=== PATIENT | female | born 1945 | race Caucasian/White ===

== ENCOUNTER 2017-08-02 07:44 | Outpatient (CLI) | payer OTHER ==
[~2017-08-02 07:44] MED LIST: ARICEPT5 MG PO; COZAAR25 MG; COZAAR25 MG PO; FLONASE16 GM NS; HYDROCHLOROTHIA25 MG; HYDROCHLOROTHIA25 MG PO; HYZAAR 100/25 T1 TAB PO; IOPHEN DM-100 MG/5 M PO; LOPRESSOR25 MG PO; METOPROLOL SUCC25 MG; METOPROLOL SUCC25 MG PO; METROPOLOL PO; MULTI VITAMIN1 EACH PO; OSEL75CA PO; PROCARDIA 30 MG PO; PROCARDIA90 MG/BLIS; PROCARDIA90 MG/BLIS PO; SYNTHROID50 MCG PO; ZANTAC300 MG PO; ZYRTEC10 MG PO
== END 2017-08-02 07:53 | disposition home or self-care (01) ==
LOC: MAMO-SONO 07:44
DX: Z12.31 Encounter for screening mammogram for malignant neoplasm of breast (principal); E03.8 Other specified hypothyroidism

== ENCOUNTER 2017-12-12 08:05 | Outpatient (CLI) | payer OTHER | END 2017-12-12 08:08 | disposition home or self-care (01) | LOC: RAD 08:05 | DX: Z00.01 Encounter for general adult medical examination with abnormal findings (principal); R10.84 Generalized abdominal pain; I10 Essential (primary) hypertension; J44.9 Chronic obstructive pulmonary disease, unspecified; M41.85 Other forms of scoliosis, thoracolumbar region; E04.1 Nontoxic single thyroid nodule; E03.8 Other specified hypothyroidism; E78.2 Mixed hyperlipidemia; Z12.11 Encounter for screening for malignant neoplasm of colon ==

== ENCOUNTER 2017-12-12 09:49 | Outpatient (CLI) | payer OTHER | END 2017-12-12 09:58 | disposition home or self-care (01) | LOC: LAB 09:49 | DX: Z00.01 Encounter for general adult medical examination with abnormal findings (principal); J44.9 Chronic obstructive pulmonary disease, unspecified; I10 Essential (primary) hypertension; M41.85 Other forms of scoliosis, thoracolumbar region; R10.9 Unspecified abdominal pain; R04.1 Hemorrhage from throat; E03.9 Hypothyroidism, unspecified; E78.2 Mixed hyperlipidemia; Z12.11 Encounter for screening for malignant neoplasm of colon ==

== ENCOUNTER 2017-12-22 08:03 | Outpatient (CLI) | payer OTHER ==
[~2017-12-22] VITALS: Ht 152.4 cm; Wt 88.5 kg
== END 2017-12-22 08:20 | disposition home or self-care (01) ==
LOC: OFIC 805 08:03
DX: J31.2 Chronic pharyngitis (principal); J34.89 Other specified disorders of nose and nasal sinuses; J32.8 Other chronic sinusitis

== ENCOUNTER 2018-05-17 10:03 | Outpatient (CLI) | payer OTHER | END 2018-05-17 16:05 | disposition home or self-care (01) | LOC: RAD 10:03 | DX: M54.2 Cervicalgia (principal); M54.89 Other dorsalgia ==

== ENCOUNTER 2018-05-23 07:29 | Outpatient (CLI) | payer OTHER | END 2018-05-23 07:35 | disposition home or self-care (01) | LOC: LAB 07:29 | DX: I10 Essential (primary) hypertension (principal); E03.8 Other specified hypothyroidism; E78.2 Mixed hyperlipidemia; Z12.11 Encounter for screening for malignant neoplasm of colon; Z13.1 Encounter for screening for diabetes mellitus ==

== ENCOUNTER 2018-11-27 09:14 | Outpatient (CLI) | payer OTHER | END 2018-11-27 11:27 | disposition home or self-care (01) | LOC: LAB 09:14 | DX: J11.1 Influenza due to unidentified influenza virus with other respiratory manifestations (principal); J11.89 Influenza due to unidentified influenza virus with other manifestations ==

== ENCOUNTER → 2019-04-13 07:23 | Outpatient (CLI) | payer OTHER | END | disposition home or self-care (01) | LOC: LAB 07:23 | DX: E78.49 Other hyperlipidemia (principal); Z00.00 Encounter for general adult medical examination without abnormal findings; E55.9 Vitamin D deficiency, unspecified; E03.8 Other specified hypothyroidism; R42 Dizziness and giddiness; J06.9 Acute upper respiratory infection, unspecified ==

== ENCOUNTER → 2019-04-26 08:53 | Outpatient (CLI) | payer OTHER | END | disposition home or self-care (01) | LOC: LAB 08:53 | DX: R05 Cough (principal); J11.1 Influenza due to unidentified influenza virus with other respiratory manifestations ==

== ENCOUNTER 2019-07-31 09:28 | Outpatient (CLI) | payer OTHER | END 2019-07-31 15:00 | disposition home or self-care (01) | LOC: LAB 09:28 | DX: J11.1 Influenza due to unidentified influenza virus with other respiratory manifestations (principal) ==

== ENCOUNTER 2019-09-07 10:12 | Outpatient (CLI) | payer OTHER | END 2019-09-07 10:52 | disposition home or self-care (01) | LOC: RAD 10:12 | DX: R05 Cough (principal) ==

== ENCOUNTER 2020-02-26 08:24 | Outpatient (CLI) | payer OTHER | END 2020-02-26 15:00 | disposition home or self-care (01) | LOC: LAB 08:24 | PROVIDERS: ATTEND General Practice | DX: E03.8 Other specified hypothyroidism (principal); I10 Essential (primary) hypertension; Z00.8 Encounter for other general examination; J01.10 Acute frontal sinusitis, unspecified ==

== ENCOUNTER 2020-02-26 09:44 | Outpatient (CLI) | payer OTHER | END 2020-02-26 09:51 | disposition home or self-care (01) | LOC: MAMO-SONO 09:44 | PROVIDERS: ATTEND General Practice | DX: Z12.31 Encounter for screening mammogram for malignant neoplasm of breast (principal) ==

== ENCOUNTER 2020-04-02 10:00 | Outpatient (CLI) | payer OTHER | END 2020-04-02 15:00 | disposition home or self-care (01) | LOC: PPH VACUNA 10:00 | DX: Z23 Encounter for immunization (principal) ==

== ENCOUNTER → 2020-11-19 09:03 | Outpatient (CLI) | payer OTHER | END | disposition home or self-care (01) | LOC: LAB 09:03 | PROVIDERS: ATTEND Internal Medicine Cardiovascular Disease | DX: E11.9 Type 2 diabetes mellitus without complications (principal); I10 Essential (primary) hypertension; E03.8 Other specified hypothyroidism; E78.2 Mixed hyperlipidemia; Z12.11 Encounter for screening for malignant neoplasm of colon; E55.9 Vitamin D deficiency, unspecified; J44.9 Chronic obstructive pulmonary disease, unspecified; M12.9 Arthropathy, unspecified; M46.47 Discitis, unspecified, lumbosacral region ==

== ENCOUNTER 2020-11-19 10:27 | Outpatient (CLI) | payer OTHER | END 2020-11-19 10:54 | disposition home or self-care (01) | LOC: MAMO-SONO 10:27 → NUCLEAR 10:27 → MAMO-SONO 10:54 → NUCLEAR 12-23 14:00 | PROVIDERS: ATTEND Internal Medicine Cardiovascular Disease | DX: N63.11 Unspecified lump in the right breast, upper outer quadrant (principal) ==

== ENCOUNTER → 2020-12-23 14:21 | Outpatient (CLI) | payer OTHER | END | disposition home or self-care (01) | LOC: NUCLEAR 14:21 | PROVIDERS: ATTEND Internal Medicine Cardiovascular Disease | DX: M81.0 Age-related osteoporosis without current pathological fracture (principal); E55.9 Vitamin D deficiency, unspecified ==

== ENCOUNTER → 2021-01-06 11:17 | Outpatient (CLI) | payer OTHER | END | disposition home or self-care (01) | LOC: LAB 11:17 | PROVIDERS: ATTEND Internal Medicine Cardiovascular Disease | DX: I48.0 Paroxysmal atrial fibrillation (principal) ==

== ENCOUNTER → 2021-02-05 08:11 | Outpatient (CLI) | payer OTHER | END | disposition home or self-care (01) | LOC: NUCLEAR 07:00 | PROVIDERS: ATTEND Internal Medicine Cardiovascular Disease | DX: I11.9 Hypertensive heart disease without heart failure (principal); I48.19 Other persistent atrial fibrillation; I10 Essential (primary) hypertension ==

== ENCOUNTER 2021-02-26 07:39 | Outpatient (CLI) | payer OTHER | END 2021-02-26 07:40 | disposition home or self-care (01) | LOC: LAB 07:39 | PROVIDERS: ATTEND Internal Medicine Cardiovascular Disease | DX: D68.8 Other specified coagulation defects (principal) ==

== ENCOUNTER 2021-03-25 07:31 | Outpatient (CLI) | payer OTHER | END 2021-03-25 07:32 | disposition home or self-care (01) | LOC: LAB 07:31 | PROVIDERS: ATTEND Internal Medicine Cardiovascular Disease | DX: D68.8 Other specified coagulation defects (principal) ==

== ENCOUNTER → 2021-04-13 07:34 | Outpatient (CLI) | payer OTHER | END | disposition home or self-care (01) | LOC: LAB 07:34 | PROVIDERS: ATTEND Internal Medicine Cardiovascular Disease | DX: D68.8 Other specified coagulation defects (principal) ==

== ENCOUNTER 2021-05-13 15:17 | Outpatient (CLI) | payer OTHER | END 2021-05-13 15:18 | disposition home or self-care (01) | LOC: LAB 15:17 | PROVIDERS: ATTEND Internal Medicine Cardiovascular Disease | DX: D68.8 Other specified coagulation defects (principal) ==

== ENCOUNTER 2021-07-26 07:11 | Outpatient (CLI) | payer OTHER | END 2021-07-26 07:21 | disposition home or self-care (01) | LOC: LAB 07:11 | PROVIDERS: ATTEND Internal Medicine Cardiovascular Disease | DX: E11.9 Type 2 diabetes mellitus without complications (principal); I10 Essential (primary) hypertension; E03.8 Other specified hypothyroidism ==

== ENCOUNTER 2021-08-26 14:42 | Outpatient (CLI) | payer OTHER | END 2021-08-26 14:48 | disposition home or self-care (01) | LOC: LAB 14:42 | PROVIDERS: ATTEND Internal Medicine Cardiovascular Disease | DX: E11.59 Type 2 diabetes mellitus with other circulatory complications (principal) ==

== ENCOUNTER 2021-09-15 09:55 | Outpatient (CLI) | payer OTHER | END 2021-09-15 12:58 | disposition home or self-care (01) | LOC: LAB 09:55 | PROVIDERS: ATTEND Internal Medicine Cardiovascular Disease | DX: D68.9 Coagulation defect, unspecified (principal) ==

== ENCOUNTER 2021-10-19 15:31 | Outpatient (CLI) | payer OTHER | END 2021-10-19 15:35 | disposition home or self-care (01) | LOC: LAB 15:31 | PROVIDERS: ATTEND Internal Medicine Cardiovascular Disease | DX: I10 Essential (primary) hypertension (principal) ==

== ENCOUNTER 2021-10-21 15:50 | Outpatient (CLI) | payer OTHER | END 2021-10-21 15:55 | disposition home or self-care (01) | LOC: LAB 15:50 | PROVIDERS: ATTEND Internal Medicine Cardiovascular Disease | DX: I10 Essential (primary) hypertension (principal) ==

== ENCOUNTER 2021-11-02 08:00 | Outpatient (CLI) | payer OTHER | END 2021-11-02 08:30 | disposition home or self-care (01) | LOC: PPH VACUNA 08:00 | PROVIDERS: ATTEND Emergency Medicine Pediatric Emergency Medicine | DX: Z23 Encounter for immunization (principal) ==

== ENCOUNTER → 2021-11-18 06:32 | Outpatient (CLI) | payer OTHER | END | disposition home or self-care (01) | LOC: LAB 06:32 | PROVIDERS: ATTEND Internal Medicine Cardiovascular Disease | DX: E11.9 Type 2 diabetes mellitus without complications (principal) ==

== ENCOUNTER 2021-12-03 07:22 | Outpatient (CLI) | payer OTHER | END 2021-12-03 07:27 | disposition home or self-care (01) | LOC: LAB 07:22 | PROVIDERS: ATTEND Specialist | DX: E03.9 Hypothyroidism, unspecified (principal); E11.21 Type 2 diabetes mellitus with diabetic nephropathy; N39.0 Urinary tract infection, site not specified; E78.2 Mixed hyperlipidemia; E11.65 Type 2 diabetes mellitus with hyperglycemia; Z12.11 Encounter for screening for malignant neoplasm of colon; D64.9 Anemia, unspecified; D68.8 Other specified coagulation defects ==

== ENCOUNTER 2021-12-08 13:43 | Outpatient (CLI) | payer OTHER | END 2021-12-08 13:44 | disposition home or self-care (01) | LOC: NUCLEAR 13:43 | PROVIDERS: ATTEND Specialist | DX: M81.0 Age-related osteoporosis without current pathological fracture (principal) ==

== ENCOUNTER → 2022-03-29 06:47 | Outpatient (CLI) | payer OTHER | END | disposition home or self-care (01) | LOC: LAB 06:47 | PROVIDERS: ATTEND Specialist | DX: E03.9 Hypothyroidism, unspecified (principal); N39.9 Disorder of urinary system, unspecified; E78.2 Mixed hyperlipidemia; D64.9 Anemia, unspecified; E11.65 Type 2 diabetes mellitus with hyperglycemia; N25.81 Secondary hyperparathyroidism of renal origin ==

== ENCOUNTER 2022-03-31 12:48 | Outpatient (CLI) | payer OTHER | END 2022-03-31 12:53 | disposition home or self-care (01) | LOC: PPH VACUNA 12:48 | PROVIDERS: ATTEND Emergency Medicine Pediatric Emergency Medicine | DX: Z23 Encounter for immunization (principal) ==

== ENCOUNTER 2022-04-01 11:59 | Outpatient (CLI) | payer OTHER | END 2022-04-01 12:00 | disposition home or self-care (01) | LOC: LAB 11:59 | PROVIDERS: ATTEND Internal Medicine Cardiovascular Disease | DX: D65 Disseminated intravascular coagulation [defibrination syndrome] (principal) ==

== ENCOUNTER 2022-04-06 08:00 | Outpatient (CLI) | payer OTHER | END 2022-04-06 08:05 | disposition home or self-care (01) | LOC: PPH VACUNA 08:00 | PROVIDERS: ATTEND Emergency Medicine Pediatric Emergency Medicine | DX: Z23 Encounter for immunization (principal) ==

== ENCOUNTER 2022-06-14 06:58 | Outpatient (CLI) | payer OTHER | END 2022-06-14 07:00 | disposition home or self-care (01) | LOC: LAB 06:58 | PROVIDERS: ATTEND Internal Medicine | DX: I48.91 Unspecified atrial fibrillation (principal) ==

== ENCOUNTER 2022-07-12 07:39 | Emergency (ER) | payer OTHER ==
[~2022-07-12] VITALS: Ht 152.4 cm; Wt 79.4 kg
[2022-07-12] MEDS ORDERED: WARFARIN SODIUM4 MG PO (07:47)
[2022-07-12] MEDS ORDERED: NIFEDIPINE ER30 M1 PO (07:49)
[2022-07-12] MEDS ORDERED: SIMVASTATIN5 MG PO (07:49)
[2022-07-12] MEDS ORDERED: CANDESARTAN-HC1 EAC1 PO (07:50)
[2022-07-12] MEDS ORDERED: METFORMIN HCL500 M1 PO (07:50)
== END 2022-07-12 14:33 | disposition home or self-care (01) ==
LOC: ER 07:39
DX: R07.89 Other chest pain (principal); E11.9 Type 2 diabetes mellitus without complications; Z79.84 Long term (current) use of oral hypoglycemic drugs; I10 Essential (primary) hypertension; E03.9 Hypothyroidism, unspecified

== ENCOUNTER → 2022-08-24 06:17 | Outpatient (CLI) | payer OTHER ==
[~2022-08-24 06:17] MED LIST changes: +CANDESARTAN-HC1 EAC1 PO; +METFORMIN HCL500 M1 PO; +NIFEDIPINE ER30 M1 PO; +SIMVASTATIN5 MG PO; +WARFARIN SODIUM4 MG PO
== END | disposition home or self-care (01) ==
LOC: LAB 06:17
PROVIDERS: ATTEND Internal Medicine
DX: I11.9 Hypertensive heart disease without heart failure (principal); I48.19 Other persistent atrial fibrillation

== ENCOUNTER 2022-12-06 06:53 | Outpatient (CLI) | payer OTHER | END 2022-12-06 06:56 | disposition home or self-care (01) | LOC: LAB 06:53 | PROVIDERS: ATTEND Internal Medicine Cardiovascular Disease | DX: I11.9 Hypertensive heart disease without heart failure (principal); E11.9 Type 2 diabetes mellitus without complications; I48.19 Other persistent atrial fibrillation ==

== ENCOUNTER 2022-12-22 23:19 | Emergency (ER) | payer OTHER ==
[~2022-12-22] VITALS: Ht 152.4 cm; Wt 79.4 kg
[2022-12-22] MEDS ORDERED: ELIQUIS5 MG PO (23:39)
== END 2022-12-23 11:09 | disposition home or self-care (01) ==
LOC: ER 23:19
DX: R22.42 Localized swelling, mass and lump, left lower limb (principal); E11.9 Type 2 diabetes mellitus without complications; Z79.84 Long term (current) use of oral hypoglycemic drugs; E03.9 Hypothyroidism, unspecified; I10 Essential (primary) hypertension; I49.8 Other specified cardiac arrhythmias

== ENCOUNTER 2025-04-29 15:53 | Outpatient (CLI) | payer OTHER ==
[~2025-04-29 15:53] MED LIST changes: +ELIQUIS5 MG PO
== END 2025-04-29 15:56 | disposition home or self-care (01) ==
LOC: RAD 15:53
PROVIDERS: ATTEND Specialist
DX: J45.998 Other asthma (principal); M47.817 Spondylosis without myelopathy or radiculopathy, lumbosacral region